=== PATIENT | female | born 1935 | race Caucasian/White ===

== ENCOUNTER 2022-06-25 09:26 | Outpatient (CLI) | payer OTHER, SELFPAY ==
[2022-06-25 12:46] LABS: Chloride* 108 mmol/L (96-114); Potassium* 5.3 mmol/L (3.6-5.1); Sodium* 142 mmol/L (135-149)
[2022-06-25 12:49] LABS: Blood Urea Nitrogen* 26 mg/dL (7-30); Carbon Dioxide* 24 mmol/L (20-32); Creatinine* 1.6 mg/dL (0.5-1.5); Estimated Glomerular Filt Rate 31 ml/min; Glucose* 112 mg/dL (60-115)
[2022-06-25 12:50] LABS: Magnesium* 1.9 mg/dL (1.5-2.6)
== END 2022-06-25 09:27 | disposition home or self-care (01) ==
PROVIDERS: PCP Family Medicine; Visit Provider Family Medicine
DX: Z01.818 Encounter for other preprocedural examination (principal); I10 Essential (primary) hypertension; N28.9 Disorder of kidney and ureter, unspecified; R25.3 Fasciculation; E78.5 Hyperlipidemia, unspecified; E78.00 Pure hypercholesterolemia, unspecified
CPT/HCPCS: 80048; 83735

== ENCOUNTER 2023-03-21 09:50 | Outpatient (CLI) | payer OTHER, SELFPAY | END 2023-03-21 09:51 | disposition home or self-care (01) | LOC: NFLDREF 15:23 | PROVIDERS: PCP Family Medicine; Referring Provider Family Medicine; Visit Provider Family Medicine | DX: Z00.00 Encounter for general adult medical examination without abnormal findings (principal); E78.5 Hyperlipidemia, unspecified; I10 Essential (primary) hypertension; E78.00 Pure hypercholesterolemia, unspecified | CPT/HCPCS: 80048; 80061 ==

== ENCOUNTER 2024-09-10 12:01 | Outpatient (RCR) | payer OTHER, SELFPAY ==
--- NOTE | 2024-09-10 14:07 | OT.OPOE ---
OT Outpatient Ortho Eval OT Outpatient Ortho Eval* Start: 09/10/24 12:34 Freq: Status: Active Protocol: Document 09/10/24 12:34 CRISTINA (Rec: 09/10/24 14:05 CRISTINA [id number]) E-signed By Reema Ponce OTR/L, CLT OT OP Ortho Eval Details Complexity Complexity Low Insurance Information Insurance Information Medicare B Other Insurance [employer] Out[facility] History/Precautions Current Condition/Medical Diagnosis Referring Provider Dr. David Preciado Medical Diagnoses S52.502D Unspecified Fracture of the lower end of left radius, subsequent encounter for closed fracture with routine healing Treatment Diagnosis Stiffness of Left Wrist, M25. 632 Localized Swelling, R60.0 Date of Onset 07/25/24 Other Precautions Cast was discontinued 08/28/24 , and patient was provided with a removable wrist brace, which she was wear for the next couple of weeks. She was instructed to remove the brace 4-5 times daily for gentle wrist range of motion exercises and was referred to occupational therapy. She should avoid any lifting with or weight-bearing on left hand for the next couple weeks. ( Therapist wrote this down for patient in order for her to remember)-she did not come into the clinic wearing the splint and admitted to not wearing it much She was instructed return for follow-up evaluation in 5-6 weeks, at which time we will obtain repeat x-rays of the left wrist. Other Conditions Traumatic closed nondisplaced fracture of distal end of left radius (Acute) S52.502A - Unspecified fracture of the lower end of left radius, initial encounter for closed fracture (ICD-10) Osteopenia (Acute) M85.80 - Other specified disorders of bone density and structure, unspecified site ( ICD-10) Insomnia (Acute) G47.00 - Insomnia, unspecified (ICD-10) Skin tag (Acute) L91.8 - Other hypertrophic disorders of the skin (ICD-10) Medicare annual wellness visit , subsequent (Acute) Z00.00 - Encounter for general adult medical examination without abnormal findings (ICD -10) Chronic kidney disease (CKD) ( Acute) N18.9 - Chronic kidney disease , unspecified (ICD-10) Cough (Acute) R05.9 - Cough, unspecified ( ICD-10) Muscle spasm (Acute) M62.838 - Other muscle spasm ( ICD-10) Muscle twitch (Acute) R25.3 - Fasciculation (ICD-10) Pre-op exam (Acute) Z01.818 - Encounter for other preprocedural examination (ICD -10) Vertigo (Acute) R42 - Dizziness and giddiness (ICD-10) Seborrheic keratosis (Acute) L82.1 - Other seborrheic keratosis (ICD-10) Right knee pain (Acute) M25.561 - Pain in right knee ( ICD-10) Pain of right upper extremity (Acute) M79.601 - Pain in right arm ( ICD-10) Mild renal insufficiency ( Acute) N28.9 - Disorder of kidney and ureter, unspecified (ICD-10) Hypertension (Acute) I10 - Essential (primary) hypertension (ICD-10) Hyperlipidemia (Acute) E78.5 - Hyperlipidemia, unspecified (ICD-10) Hypercholesterolemia (Acute) E78.00 - Pure hypercholesterolemia, unspecified (ICD-10) Medical/Functional History Medical History Reviewed Yes Prior Level of Function/Mobility Patient lives in a senior building with her spouse (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 She has been treated non operatively with a short-arm cast and at clinic visit with Dr. Preciado on 07/12 patient was issued DP3 wrist brace Left M-L [id number]. She was instructed to remove the brace 4-5 times daily for gentle wrist range of motion exercises (HEP issued by OT today in session). Precautions: She should avoid any lifting with or weight- bearing on left hand for the next couple weeks. (Therapist wrote this down for patient in order for her to remember)- she did not come into the clinic wearing the splint and admitted to not wearing it much She has her Ortho follow -up evaluation on Oct 02 at 1pm at which time we will obtain repeat x-rays of the left wrist. Pain Assessment Pain Pain No Pain Comments No pain was reported at time of this EVAL Range of Motion and Strength Wrist Range of Motion and Strength Wrist Range of Motion and Strength Musculoskeletal: Left upper extremity was examined out of the cast. No obvious deformity or significant soft tissue swelling. No tenderness palpation of the distal radius. Flexion extension of the wrist was slightly limited. Radial, ulnar, and median sensation intact to light touch. Thumb extension, thumb opposition, thumb IP flexion, intrinsics are intact. Fingers warm well perfused with 2+ radial pulse . Hand/Finger/Thumb Range of Motion and Strength Hand/Finger/Thumb Range of Motion and L wrist is slightly swollen, Strength measuring 15.5 cm's around, compared to the R (unaffected) wrist measuring at 15 cm's around Upper Extremity Special Tests Upper Extremity Special Tests Comments Comments IMAGING: AP, lateral, and oblique x- rays of left wrist performed in clinic today were reviewed. These demonstrate a healing, nondisplaced, extra-articular , transverse fracture involving the distal radial metaphysis with approximately 15? of dorsal angulation.. Severe 1st CMC and STT degenerative changes. Compared to x-rays obtained , there has been interval sclerosis with no change in alignment. Fracture line remains faintly visible. OT Problems Problems Problems Decreased Strength,Decreased Range of Motion,Pain,Decreased Coordination,Lifting,Gripping ,Pinching Problems Comments I woke up 1 time in the middle of the night with pain but maybe this is because I wasn't wearing my brace, I'll start wearing the brace like I 'm suppose to Other Problems Opening Containers,Dressing, Sleeping Patient Potential Excellent Assessment Assessment Assessment 88-year-old female sustained a left distal radius fracture on 07/25/24. She has been treated non operatively with a short-arm cast and at clinic visit with Dr. Preciado on 07/12 patient was issued DP3 wrist brace Left M-L [id number]. She was instructed to remove the brace 4-5 times daily for gentle wrist range of motion exercises (HEP issued by OT today in session). Precautions: She should avoid any lifting with or weight- bearing on left hand for the next couple weeks. (Therapist wrote this down for patient in order for her to remember)- she did not come into the clinic wearing the splint and admitted to not wearing it much She has her Ortho follow -up evaluation on Oct 02 at 1pm at which time we will obtain repeat x-rays of the left wrist. 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 Today she was given instruction of a customized home program with verbal and written instructions; discussed optimal ergonomics/ joint & body mechanics of the L wrist/hand during ADL?s; Reviewed and practiced x3 splint donning/doffing, wearing schedule and skin hygiene; Education on fracture healing/basic anatomy, her Ortho precautions and healing timelines. Patient is agreeable to the plan and motivated to make progress. She left session with her printed HEP, printed precautions, (2) size E tubigrips for the L wrist and a yellow sponge. Occupational Therapy Treatment Plan - OP Potential Rehabilitation Potential Excellent Set Goals Goals Set with Patient Yes Goals Goals 1. Through activity participation in skilled therapy sessions, and consistency in performing a customized HEP, patient will improve capacity of tendons and muscles to manage load in order to have less pain with ADLs, work, leisure activities and IADLs. 2. 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 Target Date 6 weeks Treatment Plan Treatment Plan Evaluation,Edema Control,Joint Mobilization,Manual Therapy, Therapeutic Exercise, Therapeutic Activities,Self Care/Home Management,Education Expected Frequency 1x Week Expected Duration 8-10 Weeks Home Program Home Program Home Program Initiated Home Program Specifics Access Code: [email or web address] URL: [email or web address] Date: 09/10/2024 Prepared by: Reema Ponce Exercises - Wrist Prayer Stretch - 1 x daily - 7 x weekly - 3 sets - 10 reps - Seated Forearm Pronation and Supination AROM - 1 x daily - 7 x weekly - 3 sets - 10 reps - Wrist AROM Radial Ulnar Deviation - 1 x daily - 7 x weekly - 3 sets - 10 reps - Wrist AROM Flexion Extension - 1 x daily - 7 x weekly - 3 sets - 10 reps - Wrist AAROM Flexion and Extension - 1 x daily - 7 x weekly - 3 sets - 10 reps - Thumb Opposition - 1 x daily - 7 x weekly - 3 sets - 10 reps - Finger Spreading - 1 x daily - 7 x weekly - 3 sets - 10 reps - Seated Single Finger Extension - 1 x daily - 7 x weekly - 3 sets - 10 reps - Light (yellow sponge) Squeezes - 1 x daily - 7 x weekly - 3 sets - 10 reps WROTE THIS DOWN ON PAPER FOR PATIENT Patient needs to wear the removable wrist brace, for the next couple of weeks. Only remove the brace 4-5 times daily for gentle wrist range of motion exercises. Avoid any lifting and carrying with the L hand for the next couple of weeks. Avoid weight-bearing on left hand for the next couple weeks . Cut (2) tubi alterations tailor for patient (SIZE E) to serve as a skin barrier (protection when wearing the brace) on the L wrist. Certification Certification Statement I Certify That: Therapy Services Provided, Therapy Plan Established, Therapy Plan Reviewed Certification Information Clinic ID # [id number] Initial Certification Date 09/10/24 Recertification Due Date 12/09/24 Provider Signature Required Yes Provider Signature Shows Agreement With POC & Medical Necessity Physician NPI Number Write NPI# Here Physician Comment/Change Comment or Changes Physician Signature & Date Requested Please Sign/Date Here
== END 2024-11-20 11:37 | disposition home or self-care (01) ==
PROVIDERS: PCP Family Medicine; Visit Provider Orthopaedic Surgery
DX: S52.502D Unspecified fracture of the lower end of left radius, subsequent encounter for closed fracture with routine healing (principal); M25.632 Stiffness of left wrist, not elsewhere classified; R60.0 Localized edema; Z51.89 Encounter for other specified aftercare
CPT/HCPCS: 97110; 97165; X5282

== ENCOUNTER 2024-09-24 13:20 | Outpatient (CLI) | payer OTHER, SELFPAY | END 2024-09-24 13:21 | disposition home or self-care (01) | LOC: NFLDREF 09-25 02:36 | PROVIDERS: PCP Family Medicine; Referring Provider Family Medicine; Visit Provider Family Medicine | DX: E78.00 Pure hypercholesterolemia, unspecified (principal); I10 Essential (primary) hypertension; R25.3 Fasciculation | CPT/HCPCS: 80053; 80061 ==

== ENCOUNTER 2024-11-05 13:53 | Outpatient (CLI) | payer OTHER, SELFPAY | END 2024-11-05 13:54 | disposition home or self-care (01) | LOC: LKVREF 13:54 | PROVIDERS: PCP Family Medicine; Visit Provider Family Medicine | DX: D64.9 Anemia, unspecified (principal); Z13.21 Encounter for screening for nutritional disorder | CPT/HCPCS: 82607; 82728 ==

== ENCOUNTER 2025-07-12 10:01 | Outpatient (CLI) | payer OTHER, SELFPAY | END 2025-07-12 10:02 | disposition home or self-care (01) | PROVIDERS: PCP Family Medicine; Visit Provider Family Medicine | DX: D64.9 Anemia, unspecified (principal); I12.9 Hypertensive chronic kidney disease with stage 1 through stage 4 chronic kidney disease, or unspecified chronic kidney disease; N18.9 Chronic kidney disease, unspecified; Z78.9 Other specified health status | CPT/HCPCS: 80048; 82607; 83540; 83550 ==